=== PATIENT | female | born 1965 | race Caucasian/White ===

== ENCOUNTER 2025-01-09 09:25 | Emergency (ER) | payer MEDICAID, OTHER ==
[~2025-01-09] VITALS: Ht 157.5 cm; Wt 65.9 kg
[~2025-01-09 09:25] MED LIST: ALBU17AE16 IH; CLON-592 PO; DIAZ2 PO; MULT-75 PO; QUET25TA PO; ZOLP-162 PO
[2025-01-09 09:30] VITALS: BP 120/79; PULSE 66; RESP 20; TEMP 98.2; O2SAT 98
[2025-01-09] MEDS ORDERED: ASPI-1444 PO (09:35)
[2025-01-09] MEDS ORDERED: AMLO2.5T96 PO (09:35)
[2025-01-09] MEDS: HydrOXYzine PAMOATE 25 MG CAPSULE PO ONE (11:46)
[2025-01-09] MEDS ORDERED: HYDR-4808 PO (12:47)
== END 2025-01-09 12:57 | disposition home or self-care (01) ==
LOC: EMS 09:27
DX: F41.0 Panic disorder [episodic paroxysmal anxiety] (principal); J45.909 Unspecified asthma, uncomplicated; F32.A Depression, unspecified; Z79.82 Long term (current) use of aspirin; Z79.899 Other long term (current) drug therapy; Z88.5 Allergy status to narcotic agent
CPT/HCPCS: 99283